=== PATIENT | male | born 1945 | race Caucasian/White ===

== ENCOUNTER 2021-09-13 19:49 | Emergency (ER) | payer MEDICARE, SELFPAY ==
[2021-09-13] VITALS (7 sets, daily range): BP systolic 171–199; BP diastolic 88–113; PULSE 73–91; RESP 22; TEMP 36.4; O2SAT 96–98; BMI 27.7
[2021-09-13 20:27] LABS: Add Manual Diff / Slide Review NO; Basophils Absolute Auto 0 /uL (0-100); Basophils Percent Auto 0.3 % (0-2); Eosinophils Absolute Auto 200 /uL (0-450); Eosinophils Percent Auto 1.7 % (2-4); Hematocrit 46.7 % (41-53); Lymphocytes Absolute Auto 2000 /uL (1100-4500); Lymphocytes Percent Auto 16.5 % (25-40); Mean Corpuscular HGB Conc 34.3 % (30-36); Mean Corpuscular Hemoglobin 32.2 PG (26-34); Mean Corpuscular Volume 93.9 fL (80-100); Monocytes Absolute Auto 1100 /uL (0-900); Monocytes Percent Auto 9.4 % (3-14); Neutrophils Absolute Auto 8700 /uL (1500-7000); Neutrophils Percent Auto 72.1 % (50-75); Platelet Count 174 X10^3/uL (150-400); Red Blood Cell Count 4.97 X10^6/uL (4.5-5.9); Red Cell Distribution Width 13.3 % (11.6-14.8)
[2021-09-13 21:13] LABS: Alanine Aminotransferase 15 IU/L (<50); Albumin 4.6 g/dL (3.5-5.0); Albumin Globulin Ratio 1.3 (1.0-2.8); Alkaline Phosphatase 68 U/L (38-126); Aspartate Aminotransferase 34 IU/L (17-59); BUN Creatinine Ratio 24.3 (6-22); Bilirubin Total 1.1 mg/dL (0.2-1.3); Blood Urea Nitrogen 18 mg/dL (9-20); Calcium 9.3 mg/dL (8.4-10.2); Carbon Dioxide 23 mmol/L (22-32); Chloride 106 mmol/L (98-107); Estimated Glomerular Filt Rate > 60 mL/min (>60); Globulin 3.6 g/dL (1.7-4.1); Glucose 106 mg/dL (80-110); HEMOLYSIS 24 (0-50); Lipase 31 U/L (23-300); Potassium 3.5 mmol/L (3.4-5.1); Sodium 139 mmol/L (137-145); Total Protein 8.2 g/dL (6.3-8.2)
[2021-09-13] MEDS: TAMSULOSIN 0.4 MG CAPSULE PO (21:14)
--- NOTE | 2021-09-13 21:15 | ED.GENADULT ---
HPI - General Adult General Chief complaint: Abdominal Pain Stated complaint: severe stomach pains Time Seen by Provider: 09/13/21 20:04 Source: patient Mode of arrival: Ambulatory History of Present Illness HPI narrative: 75-year-old gentleman visiting the area with history of hypothyroidism, hyperlipidemia and recently noted microscopic hematuria presents with acute abdominal pain. No fevers cough chills vomiting or diarrhea. He has never had similar complaints. Describes it through the entire midportion of his abdomen. Bladder scan done indicates 1350 cc of urine in the bladder. Related Data Previous Rx's Medication Instructions Recorded tamsulosin 0.4 mg capsule (Flomax) 0.4 mg PO DAILY #30 caps 09/13/21 Allergies Allergy/AdvReac Type Severity Reaction Status Date / Time Sulfa (Sulfonamide Allergy Verified 09/13/21 20:04 Antibiotics) Review of Systems Review of Systems Narrative: Remainder of complete review of systems is otherwise unremarkable except for that included in the HPI. Patient History Medical History BPH (benign prostatic hyperplasia) Hyperlipidemia Social History Smoking Status: Never smoker Smoking Status: Never smoker alcohol intake frequency: holidays/special occasions only Substance Use Type: does not use Exam Initial Vital Signs Initial Vital Signs: Vital Signs Pulse Rate 88 09/13/21 19:56 Blood Pressure 199/113 H 09/13/21 19:56 Pulse Oximetry 96 09/13/21 19:56 General: Healthy appearing, in no acute distress. Able to give a complete and coherent history. Well-nourished well-developed HEENT: Moist mucous membranes, normal sclera with reactive pupils, Neck: supple Respiratory: Lungs are clear to auscultation, no wheezing no rales no rhonchi. Full and symmetrical air movement Cardiac: Regular rate and rhythm no murmurs no bruits Abdomen: examined after waters placement: Soft, nontender, good bowel tones, no flank pain Skin: Warm and dry, no rashes Neurologic: Grossly neurologically intact with no obvious asymmetries or abnormalities Extremities: No trauma, well perfused Psych: Cooperative, appropriate insight and affect Course Orders Ordered: ED Orders 09/13/21 20:03 Complete Blood Count AUTO DIFF Stat Comprehensive Metabolic Panel Stat Lipase Stat 09/13/21 20:24 Urinalysis and Microscopic Stat Discontinued Medications Tamsulosin HCl (Tamsulosin 0.4 Mg Capsule) 0.4 mg PO NOW ONE Stop: 09/13/21 20:59 Last Admin: 09/13/21 21:14 Dose: 0.4 mg Documented By: DORI Vital Signs Vital signs: Vital Signs - 8 hr 09/13/21 20:00 09/13/21 19:56 09/13/21 19:56 Temperature 97.6 F Pulse Rate 91 H 88 Respiratory Rate 22 Blood Pressure 199/113 H 199/113 H Pulse Oximetry 97 96 Oxygen Delivery Method Room Air 09/13/21 20:00 09/13/21 20:30 09/13/21 20:31 Temperature Pulse Rate 86 74 74 Respiratory Rate Blood Pressure Pulse Oximetry 98 98 97 Oxygen Delivery Method 09/13/21 20:31 09/13/21 20:39 09/13/21 20:39 Temperature Pulse Rate 75 Respiratory Rate Blood Pressure 171/92 H 173/92 H Pulse Oximetry 97 Oxygen Delivery Method Medical Decision Making Lab Data Result diagrams: 09/13/21 20:03 09/13/21 20:03 Labs: Lab Results 09/13/21 09/13/21 09/13/21 Range/Units 20:03 20:03 20:24 WBC 12.0 H (4.5-11.0) X10^3/uL RBC 4.97 (4.5-5.9) X10^6/uL Hgb 16.0 (13.5-17.5) g/dL Hct 46.7 (41-53) % MCV 93.9 (80-100) fL MCH 32.2 (26-34) PG MCHC 34.3 (30-36) % RDW 13.3 (11.6-14.8) % Plt Count 174 (150-400) X10^3/uL Neut % (Auto) 72.1 (50-75) % Lymph % (Auto) 16.5 L (25-40) % Wilkinson % (Auto) 9.4 (3-14) % Eos % (Auto) 1.7 L (2-4) % Baso % (Auto) 0.3 (0-2) % Neut # (Auto) 8700 H (2799-6524) /uL Lymph # (Auto) 2000 (6730-2145) /uL Wilkinson # (Auto) 1100 H (0-900) /uL Eos # (Auto) 200 (0-450) /uL Baso # (Auto) 0 (0-100) /uL Sodium 139 (137-145) mmol/L Potassium 3.5 (3.4-5.1) mmol/L Chloride 106 (98-107) mmol/L Carbon Dioxide 23 (22-32) mmol/L BUN 18 (9-20) mg/dL Creatinine 0.74 (0.66-1.25) mg/dL Estimated GFR > 60 (>60) mL/min BUN/Creatinine Ratio 24.3 H (6-22) Glucose 106 (80-110) mg/dL Calcium 9.3 (8.4-10.2) mg/dL Total Bilirubin 1.1 (0.2-1.3) mg/dL AST 34 (17-59) IU/L ALT 15 (<50) IU/L Alkaline Phosphatase 68 (38-126) U/L Total Protein 8.2 (6.3-8.2) g/dL Albumin 4.6 (3.5-5.0) g/dL Globulin 3.6 (1.7-4.1) g/dL Albumin/Globulin Ratio 1.3 (1.0-2.8) Lipase 31 (23-300) U/L Urine Color Yellow Urine Appearance Clear Urine pH 5.0 (4.5-8.0) Ur Specific [place] 1.010 (1.000-1.035) Urine Protein Negative (Negative) Urine Glucose (UA) Negative (Negative) g/dL Urine Ketones Negative (NEGATIVE) Urine Occult Blood 3+ H (Negative) Urine Nitrate Negative (Negative) Urine Bilirubin Negative (NEGATIVE) Urine Urobilinogen 0.2 (0.2) E.U./dL Ur Leukocyte Esterase Trace H (NEGATIVE) [facility] Narrative Medical decision making narrative: 75-year-old gentleman presents with acute urinary retention causing significant abdominal pain. Lab workup is unremarkable and pain is resolved with Waters catheter placement. He has had recent workup for microscopic hematuria in a schedule for urologic follow-up for cystoscopy in mid September. CT scan of the abdomen had not indicated significant prostate hypertrophy or significant bladder abnormalities. He apparently has a right kidney stone. Waters catheterization in the emergency department Waters catheter is placed without difficulty and 1350 cc of light yellow urine is drained. Waters catheter is left in place and patient is started on tamsulosin/Flomax with prescription given and instructions to follow-up with his urologist as previously planned. He is given instructions on use with of a leg bag. Recommended at least 4-5 days of Waters catheter to help with the distended bladder and allow the tamsulosin to begin to take effect. Noted in the emergency department was elevated blood pressure that remained elevated even once the bladder pressure was relieved. Have asked him to check numbers when he is not in the emergency department. He notes that when he has checked blood pressures previously he is not had issues with hypertension. Questions were answered, because patient will be returning to [place] next week and follow-up with physicians down there, a copy of this note will be shared with the patient to share with his physicians. He is safe for home discharge Discharge Plan Departure Patient Disposition: Home Clinical Impression: Acute urinary retention, Blood pressure elevated without history of HTN Instructions: How to Care for Your Waters Catheter -- Male Activity Restrictions/Additional Instructions: Thank you for coming in today Your bladder was very distended and I believe this is the cause of the pain that you are experiencing. Waters catheter was placed with 1350cc of urine out. I had that started you on tamsulosin/Flomax to help with bladder outlet obstruction symptoms secondary to a large prostate. I would suggest that you continue this until you discuss it further with your urologist. I would also suggest that your catheter remain in place for 5-7 days to make sure there is time for your bladder to fully decompress and for the medicine to begin to be effective to help alleviate the enlarged prostate symptoms and make sure that you do not need to have another Waters catheter replaced. Your blood pressure was elevated in the emergency department. This is not a diagnosis of hypertension however it is going to be very appropriate for you to check your blood pressure outside the emergency department to make sure that you are consistently below 140/80. If you have any difficulties your welcome to return to the emergency department. I have given you a copy of your note from today and ask that you share that with your urologist with your follow-up appointment. I hope you are able to enjoy the rest of your stay at [facility] Prescriptions: New tamsulosin [Flomax] 0.4 mg capsule 0.4 mg PO DAILY Qty: 30 0RF
[2021-09-13 21:24] LABS: Appearance Urine UA CLEAR; Bilirubin Urine UA NEGATIVE (NEGATIVE); Color Urine UA YELLOW; Glucose Urine UA NEGATIVE (Negative); Ketones Urine UA NEGATIVE (NEGATIVE); Leukocyte Esterase Urine UA TRACE (NEGATIVE); Nitrite Urine UA NEGATIVE (Negative); Occult Blood Urine UA 3+ (Negative); Protein Urine UA NEGATIVE (Negative); Urobilinogen Urine UA 0.2 E.U./dL (0.2)
[2021-09-13 21:30] LABS: Bacteria Urine None Seen; Culture Indicated Urine Cult Not Indicated; RBC Urine 10-30/HPF (0-5/HPF); Squamous Epithelial Cell Urine 5-10 /HPF (0-5/HPF); WBC Urine 1-5/HPF (0-5/HPF)
== END 2021-09-13 21:39 | disposition home or self-care (01) ==
PROVIDERS: Emergency Provider Emergency Medicine
DX: R33.8 Other retention of urine (principal); R03.0 Elevated blood-pressure reading, without diagnosis of hypertension
CPT/HCPCS: 80053; 81001; 83690; 85025; 99283; 99284